=== PATIENT | female | born 1925 | race African-American/Black ===

== ENCOUNTER 2016-05-12 12:25 | Emergency (ER) | payer MEDICARE, BC, OTHER ==
[~2016-05-12] VITALS: Ht 170.2 cm; Wt 99.8 kg
[2016-05-12 12:35] VITALS: BP 107/78
--- NOTE | 2016-05-12 13:04 | ED.ADGEN ---
Past History Past Medical History: No Pertinent History Past Surgical History: No Surgical History Smoking: Non-smoker Alcohol Use: None Drug Use: None Adult General HPI HPI Patient is a 89-year-old female presents emergency department complaining of a 1 -2 week history of cough and intermittent fever. Patient has been using over-the -counter medications without significant relief. She is concerned about possible pneumonia. Review of Systems Review of Systems Constitutional: Denies fever or chills [] Eyes: Denies change in visual acuity, redness, or eye pain [] HENT: Denies nasal congestion or sore throat [] Respiratory: Denies cough or shortness of breath [] Cardiovascular: No additional information not addressed in HPI [] GI: Denies abdominal pain, nausea, vomiting, bloody stools or diarrhea [] : Denies dysuria or hematuria [] Musculoskeletal: Denies back pain or joint pain [] Integument: Denies rash or skin lesions [] Neurologic: Denies headache, focal weakness or sensory changes [] Endocrine: Denies polyuria or polydipsia [] Allergies Allergies Allergies Coded Allergies Type Severity Reaction Last Updated Verified acetaminophen Allergy Intermediate 10/03/13 Yes Penicillins Adverse Reaction Intermediate N/V 10/03/13 Yes codeine Adverse Reaction Intermediate N/V 10/03/13 Yes Physical Exam Physical Exam Constitutional: Well developed, well nourished, no acute distress, non-toxic appearance. [] HENT: Normocephalic, atraumatic, bilateral external ears normal, oropharynx moist, no oral exudates, nose normal. [] Eyes: PERRLA, EOMI, conjunctiva normal, no discharge. [] Neck: Normal range of motion, no tenderness, supple, no stridor. [] Cardiovascular:Heart rate regular rhythm, no murmur [] Lungs & Thorax: Bilateral breath sounds clear to auscultation [] Abdomen: Bowel sounds normal, soft, no tenderness, no masses, no pulsatile masses. [] Skin: Warm, dry, no erythema, no rash. [] Back: No tenderness, no CVA tenderness. [] Extremities: No tenderness, no cyanosis, no clubbing, ROM intact, no edema. [] Neurologic: Alert and oriented X 3, normal motor function, normal sensory function, no focal deficits noted. [] Psychologic: Affect normal, judgement normal, mood normal. [] Current Patient Data Vital Signs Vital Signs Date Time Temp Pulse Resp B/P Pulse Ox O2 Delivery O2 Flow Rate FiO2 05/12/16 12:35 98.3 74 22 96 Room Air EKG EKG [] Radiology/Procedures Radiology/Procedures Exam: AP portable chest. History: Cough for 3 days. Comparison: 10/03/2013. Findings: The heart and mediastinal structures are within normal limits for size. Lungs are without infiltrate. No pneumothorax or pleural effusion is appreciated. Aortic atherosclerosis is present. Post surgical changes are seen involving the right shoulder and distal clavicle. Impression: 1. No acute cardiopulmonary process. DICTATED AND SIGNED BY: ALLA UNDERWOOD MD DATE: 05/12/16 1309 CC: ANDREW MORELAND MD; ISABEL HERNANDEZ PRESIDENT ~[] Course & Med Decision Making Course & Med Decision Making Pertinent Labs and Imaging studies reviewed. (See chart for details) Reassuring workup. However, given the duration of symptoms I do not find unreasonable to start her on a course of azithromycin. She is also given supportive care and follow-up instructions. [] Final Impression Final Impression cough Problems: Dragon Disclaimer Dragon Disclaimer This electronic medical record was generated, in whole or in part, using a voice recognition dictation system. ANDREW MORELAND MD May 12, 2016 13:03
--- NOTE | 2016-05-12 13:12 | RAD ---
Exam: AP portable chest. History: Cough for 3 days. Comparison: 10/03/2013. Findings: The heart and mediastinal structures are within normal limits for size. Lungs are without infiltrate. No pneumothorax or pleural effusion is appreciated. Aortic atherosclerosis is present. Post surgical changes are seen involving the right shoulder and distal clavicle. Impression: 1. No acute cardiopulmonary process.
[2016-05-12] MEDS ORDERED: AZIT250T6 PO (13:23)
== END 2016-05-12 13:31 | disposition home or self-care (01) ==
LOC: ER 12:25
DX: R05 Cough (principal); R50.9 Fever, unspecified; Z88.0 Allergy status to penicillin; Z88.6 Allergy status to analgesic agent
CPT/HCPCS: 71010; 99283